=== PATIENT | female | born 1980 ===

== ENCOUNTER 2017-03-06 09:33 | Day surgery (SDC) | payer MEDICARE ==
[2017-03-06 10:04] VITALS: BMI 41.9
[2017-03-06] MEDS ORDERED: methylPREDNISolone Depo 80 mg/ml Inj ONE (12:05)
[2017-03-06] MEDS ORDERED: Iohexol 300 10 ML ONE (12:05)
[2017-03-06] MEDS ORDERED: Bupivacaine HCl 0.25% PF (10 ml) Inj ONE (12:05)
[2017-03-06] MEDS ORDERED: Lidocaine 1% Inj (20ml) ONE (12:06)
[2017-03-06] MEDS ORDERED: Lactated Ringer's 1,000 ML IV ONE (12:15)
[2017-03-06] MEDS ORDERED: HYDROmorphone 0.5 mg/0.5 ml ISec IVP PRN (12:35)
[2017-03-06] MEDS ORDERED: HYDROmorphone 0.5 mg/0.5 ml ISec IVP ONE (12:35)
--- NOTE | 2017-03-06 12:48 | OP ---
PROCEDURE DATE: 03/06/2017 PREOPERATIVE DIAGNOSIS: Lumbar radiculopathy. POSTOPERATIVE DIAGNOSIS: Lumbar radiculopathy. PROCEDURE: Right L4-L5, L5-S1 transforaminal epidural steroid injection. ANESTHESIOLOGIST: Dr. Kwong SURGEON: Dr. Allen ANESTHESIA TYPE: Monitored anesthesia care. COMPLICATIONS: None. SPECIMENS: None. DESCRIPTION OF PROCEDURE: After re-discussion of the procedure with the patient including its risks, benefits, alternatives, outcome data, possibility of no effect or increased pain, the patient consen juno to the procedure. She denied any recent infections, bleeding tendencies, or being on anticoagula nts. The decision was then made to proceed to the OR. The patient was placed on the fluoroscopy table in a prone position with 2 pillows underneath her abd omen. The back was prepped and draped in a usual sterile fashion and sterile technique was adhered t o during the entire procedure. The L4 and L5 vertebral levels were first identified in the anteropos terior view. Angulation towards the right at approximately 20 degrees was obtained to maximize the v isualization of the right L4 and L5 pedicles. The skin overlying the 6 o'clock position of both pedi cles was then infiltrated with 1% lidocaine using a 25 gauge needle. Subsequently, a 22 gauge, 5 inc h spinal needle was then incrementally advanced under fluoroscopic guidance until tip of the needle l ay within the intervertebral foramen. This was confirmed on the anteroposterior view and the lateral views. After satisfactory positioning of both needles, approximately 0.5 mL of Isovue contrast was injected showing appropriate epidural and nerve root spread without any signs of CSF or intravenous i nvolvement. At this point, approximately 3 mL of a 0.25% Marcaine and Depo-Medrol mixture was inject ed. The needle was then removed and the patient's back was cleaned and dried and Band-Aids were appl ied. The patient was then transferred to the recovery area in good condition without any signs of [employer] [place] or any neurological deficits. She will have a followup in the office in approximately 2-4 weeks . En-Dmitriy Allen MD cc: [phone] TT: 03/06/2017 12:48:14 en
[2017-03-06 13:27] VITALS: O2SAT 98
[2017-03-06 14:04] VITALS: BP 115/62; PULSE 55; RESP 18; TEMP 98
--- NOTE | 2017-03-06 17:51 | RAD ---
PROCEDURE: Lumbar Epidural Injection HISTORY: PAIN MANAGEMENT TECHNIQUE: Fluoroscopic guidance was provided for epidural injection for pain management purposes. FINDINGS: Total fluoroscopic time (continuous mode) utilized during the procedure: 20.7 seconds. IMPRESSION: Fluoroscopic guidance provided for epidural injection. Please refer procedure.
== END 2017-03-06 14:00 | disposition home or self-care (01) ==
LOC: H.OPSURG 09:33
PROVIDERS: ATTEND Anesthesiology
DX: M54.16 Radiculopathy, lumbar region (principal); E78.5 Hyperlipidemia, unspecified; I10 Essential (primary) hypertension
CPT/HCPCS: 64483; 64484; J1040; J1170; J7120; Q9967

== ENCOUNTER 2018-10-01 06:21 | Day surgery (SDC) | payer MEDICARE, MEDICAID ==
[2018-09-27 14:25] VITALS: BMI 43.9
[2018-10-01] MEDS ORDERED: Lactated Ringer's 1,000 ML IV ONE (07:15)
[2018-10-01] MEDS ORDERED: Midazolam 2 MG/2 ML VIAL ONE ×2 (07:16→08:19)
[2018-10-01] MEDS ORDERED: Bupivacaine HCl 0.5% PF (30 ml) Inj ONE ×2 (07:22→12:29)
[2018-10-01] MEDS ORDERED: Bupivacaine HCl 0.25% PF (30 ml) Inj ONE (07:22)
[2018-10-01] MEDS ORDERED: MethylPREDNISolone Depo 40 mg/ml Inj ONE ×2 (07:22→12:29)
[2018-10-01] MEDS ORDERED: Lidocaine 1% Inj (20ml) ONE ×2 (07:23→12:30)
[2018-10-01] MEDS ORDERED: Iohexol 300 10 ML ONE ×2 (07:23→12:29)
[2018-10-01] MEDS ORDERED: Lidocaine 1% Inj (20ml) IJ ONE ×2 (07:45→08:17)
[2018-10-01] MEDS ORDERED: Bupivacaine 0.5% Inj(30mL) IJ ONE ×2 (07:45→08:17)
[2018-10-01] MEDS ORDERED: Iohexol 300 10 ML IJ ONE (08:17)
[2018-10-01] MEDS ORDERED: methylPREDNISolone Depo 80 mg/ml Inj IM ONE (08:17)
[2018-10-01] MEDS ORDERED: Propofol 10 mg/ml Inj (20 ML) ONE (08:20)
[2018-10-01] MEDS ORDERED: DiphenhydrAMINE 50 mg/ml Inj IVP PRN (08:32)
[2018-10-01] MEDS ORDERED: HYDROmorphone 0.5 mg/0.5 ml ISec IVP PRN (08:32)
[2018-10-01] MEDS ORDERED: Lactated Ringer's 1,000 ML IV SCH (08:45)
[2018-10-01 09:57] VITALS: TEMP 98
[2018-10-01 10:02] VITALS: O2SAT 97
[2018-10-01 10:49] VITALS: BP 102/54; PULSE 55; RESP 20
--- NOTE | 2018-10-01 10:57 | RAD ---
Date of service: 10/01/2018 PROCEDURE: Fluoroscopy up to 1 hr. HISTORY: PAIN MANAGEMENT COMPARISON: None TECHNIQUE: Standard protocol for this study/examination. FINDINGS: Total fluoroscopic time (continuous mode) utilized during the procedure 24.9 seconds. Total exam DLP: 14.62 (mGy). IMPRESSION: Less than 1 hr fluoroscopic assistance provided during performance of the procedure.
--- NOTE | 2018-10-01 20:02 | OP ---
PROCEDURE DATE: 10/01/2018 PREOPERATIVE DIAGNOSIS: Lumbar radiculopathy. POSTOPERATIVE DIAGNOSIS: Lumbar radiculopathy. PROCEDURE: Right L4-L5, L5-S1 transforaminal epidural steroid injection. SURGEON: Yanick Allen MD. TYPE OF ANESTHESIA: Monitored anesthesia care. ANESTHESIA ADMINISTERED BY: Nagi Bender MD. COMPLICATIONS: None. SPECIMEN: None. DESCRIPTION OF PROCEDURE: After we had a discussion of the procedure with the patient including its risks, benefits, alternatives, outcome data, and possibility of no effect or increased pain, the patient consented to the procedure. She denies any recent infection, bleeding tendencies or being on anticoagulants. Decision was then made to proceed to the OR. The patient was placed on the fluoroscopy table in a prone position with two pillows underneath her abdomen. The back was prepped and draped in the usual sterile fashion and sterile technique was adhered to during the entire procedure. The L4 and L5 vertebral levels were first identified in the anteroposterior view. Angulation towards the right at approximately 25 degrees was used to maximize the visualization of the right L4 and L5 pedicles. The skin overlying the 6 o'clock position of both pedicles was then infiltrated with 1% lidocaine using 25-gauge needle. Subsequently, a 22-gauge 5-inch spinal needle was incrementally advanced under fluoroscopic guidance until tip of the needle walked into the intervertebral foramen. The final needle position was confirmed on the anteroposterior view and lateral views. After satisfactory positioning of both needles, approximately 0.5 mL of Isovue contrast was then injected showing appropriate epidural nerve root spread without any signs of CSF or intervenous involvement. At this point, approximately 3 mL of 0.25% Marcaine and Depo-Medrol mixture was injected. The needle was then removed. The patient's back was cleaned and dry bandages were applied. The patient was then transferred to recovery area in good condition without any signs of G[employer] toxicity or any neurological deficits. She will be following in our office in approximately two to four weeks. Yanick Allen MD
== END 2018-10-01 09:00 | disposition home or self-care (01) ==
LOC: H.OPSURG 06:21
PROVIDERS: ATTEND Anesthesiology
DX: M54.16 Radiculopathy, lumbar region (principal); J45.909 Unspecified asthma, uncomplicated; I10 Essential (primary) hypertension; E03.9 Hypothyroidism, unspecified; G47.33 Obstructive sleep apnea (adult) (pediatric); K21.9 Gastro-esophageal reflux disease without esophagitis; M54.9 Dorsalgia, unspecified
CPT/HCPCS: 64483; 64484; J1030; J1040; J2250; J2704; J3010; J7120; Q9967